=== PATIENT | male | born 2000 | race Hispanic/Latino ===

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

== ENCOUNTER 2023-05-30 19:20 | Emergency (ER) | payer OTHER, SELFPAY ==
[2023-05-30] MEDS ORDERED: Lidocaine 1% w/Epinephrine 1:100K 20 ML VIAL ONE (20:10)
[2023-05-30] MEDS ORDERED: Boostrix 0.5 ML (Tdap) VIAL (>/=7 yrs of age) ONE ×2 (20:10→20:15)
[2023-05-30] MEDS ORDERED: Bacitracin 1 PK ONE (21:34)
== END 2023-05-30 21:54 | disposition home or self-care (01) ==
LOC: ERS 19:20
DX: S06.0X0A Concussion without loss of consciousness, initial encounter (principal); S01.21XA Laceration without foreign body of nose, initial encounter; S01.81XA Laceration without foreign body of other part of head, initial encounter; S01.112A Laceration without foreign body of left eyelid and periocular area, initial encounter; S80.211A Abrasion, right knee, initial encounter; F17.210 Nicotine dependence, cigarettes, uncomplicated; W01.10XA Fall on same level from slipping, tripping and stumbling with subsequent striking against unspecified object, initial encounter; Y93.02 Activity, running; Z23 Encounter for immunization
CPT/HCPCS: 12002; 70450; 70486; 90471; 90715